=== PATIENT | male | born 1930 | race Caucasian/White ===

== ENCOUNTER 2018-07-02 16:45 | Inpatient (IN) | payer MEDICARE, OTHER ==
[2018-07-02] VITALS (10 sets, daily range): BP systolic 74–164; BP diastolic 48–83
[~2018-07-02] VITALS: Ht 172.7 cm; Wt 94.4 kg
[2018-07-02] MEDS ORDERED: PROPOFOL 50 ML IV ONE (16:53)
[2018-07-02] MEDS ORDERED: MIDAZOLAM HCL/PF 2 MG/2 ML VIAL. ONE (16:59)
[2018-07-02] MEDS ORDERED: fentaNYL PF VIAL 100 MCG/2 ML VIAL ONE (16:59)
[2018-07-02] MEDS ORDERED: LIDOCAINE 1% Multi-Dose 20 ML VIAL. ONE (17:00)
[2018-07-02] MEDS ORDERED: IODIXANOL 320 MG/ML 100 ML VIAL. ONE ×2 (17:00→17:02)
[2018-07-02 17:03] LABS: BASO # 0.1 x10^3/uL (0.0-0.2); BASO % 1 % (0-3); EOS # 0.2 x10^3/uL (0.0-0.7); EOS % 1 % (0-3); HEMATOCRIT 40.8 % (39.0-53.0); HEMOGLOBIN 13.7 g/dL (13.0-17.5); LYMPH % 20 % (24-48); MEAN CORPUSCULAR HEMOGLOBIN 33 pg (25-35); MEAN CORPUSCULAR HGB CONC 34 g/dL (31-37); MEAN CORPUSCULAR VOLUME 97 fL (79-100); MONO # 0.8 x10^3/uL (0.0-1.1); MONO % 4 % (0-9); NEUT # 15.2 x10^3uL (1.8-7.7); NEUT % 75 % (31-73); PLATELET COUNT 240 x10^3/uL (140-400); RED BLOOD COUNT 4.21 x10^6/uL (4.30-5.70); RED CELL DISTRIBUTION WIDTH 13.3 % (11.5-14.5); WHITE BLOOD COUNT 20.2 x10^3/uL (4.0-11.0)
[2018-07-02 17:11] LABS: CALCIUM 8.8 mg/dL (8.5-10.1); CREATININE 1.5 mg/dL (0.7-1.3); GFR 44.3
[2018-07-02 17:12] LABS: PROTHROMBIN TIME PATIENT 13.4 SEC (11.7-14.0)
[2018-07-02 17:15] LABS: BASE EXCESS ABG -4 mmol/L (-3-3); HCO3 ABG 23 mmol/L (21-28); PCO2 ABG 49 mmHg (35-46); PO2 ABG 64 mmHg (65-108); SAT O2 ABG 89 % (92-99)
[2018-07-02 17:18] LABS: ALBUMIN 3.8 g/dL (3.4-5.0); ALBUMIN/GLOBULIN RATIO 1.2 (1.0-1.7); MAGNESIUM 1.8 mg/dL (1.8-2.4); TOTAL BILIRUBIN 0.8 mg/dL (0.2-1.0); TOTAL PROTEIN 7.1 g/dL (6.4-8.2)
[2018-07-02] MEDS ORDERED: ETOMIDATE 20 MG/10 ML VIAL. IV ONE (17:24)
[2018-07-02] MEDS ORDERED: ROCURONIUM 50 MG/5 ML VIAL. ONE (17:25)
[2018-07-02 17:27] LABS: % BANDS 13 % (0-9); % EOS 4 % (0-5); % LYMPHS 21 % (24-48); % MONOS 3 % (0-10); % SEGS 59 % (35-66); PLT ESTIMATE ADEQUATE (ADEQUATE)
[2018-07-02] MEDS ORDERED: IV NORMAL SALINE 1000ML BAG 1,000 ML IV ONE (17:30)
[2018-07-02] MEDS ORDERED: PIPERACILLIN/TAZOBACTAM 3.375 GM in IV NORMAL SALINE 50ML 50 ML IV ONE (17:30)
--- NOTE | 2018-07-02 17:32 | RAD ---
PORTABLE CHEST 1V History: Yes with of surface, LINE PLACEMENTS. Endotracheal tube is identified with its tip at the marnie. Recommend retraction about 4 cm. There is diffuse infiltrates/edema in both lungs, much more prominent in the right lower lobe where there is confluent airspace opacification. Endotracheal tube has its tip at the marnie, and could be withdrawn a few centimeters. Endogastric tube is seen extending into the left upper quadrant. No evidence of pneumothorax. No large effusion. IMPRESSION: 1. Endotracheal tube tip at the marnie, recommend retract a couple of centimeters. 2. Extensive infiltrates/edema in both lungs, greatest at the right lower lobe where there is airspace consolidation. 3. Findings discussed with Dr. Langston in the emergency room. Electronically signed by: Maximo Miller MD (07/02/2018 5:29 PM) [facility]
[2018-07-02 17:35] LABS: BILIRUBIN,URINE NEGATIVE (NEG); CLARITY,URINE CLEAR; COLOR,URINE YELLOW; NITRITE,URINE NEGATIVE (NEG); PH,URINE 7.5; PROTEIN,URINE NEGATIVE (NEG-TRACE)
[2018-07-02] MEDS ORDERED: ASPIRIN RECTAL 300 MG SUPP. PR STA (17:37)
[2018-07-02 17:44] LABS: BACTERIA,URINE MANY /HPF (0-FEW); RBC,URINE OCC /HPF (0-2); SQUAMOUS EPITHELIAL CELL,UR OCC /LPF
[2018-07-02] MEDS ORDERED: ACETAMINOPHEN 650 MG SUPP.RECT. PR ONE (17:45)
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
[2018-07-02] MEDS ORDERED: ANTI-COAG MONITOR BY PHARMACY. MC PRN (18:00)
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
--- NOTE | 2018-07-02 18:51 | NUR ---
Patient arrived to unit intubated and sedated. Placed on vent and monitor. Report give to FRANCESCA Healy.
[2018-07-02 18:53] LABS: FIO2 ABG 100
[2018-07-02] MEDS ORDERED: PROPOFOL 100 ML IV ONE (18:59)
[2018-07-02] MEDS: HEPARIN for IV BOLUS 10,000 UNIT/10 ML VIAL. IV PRN (19:08)
[2018-07-02] MEDS: HEPARIN 25,000UTS/500ML PREMIX 500 ML IV PRN (19:13)
[2018-07-02] MEDS: IV NORMAL SALINE 1000ML BAG 1,000 ML IV SCH ×2 (19:14→23:13)
[2018-07-02] MEDS ORDERED: PIP/TAZO PER PHARMACY MC PRN (20:00)
[2018-07-02] MEDS ORDERED: VANCOMYCIN PER PHARMACY MC PRN (20:00)
[2018-07-02] MEDS ORDERED: VANCOMYCIN 2 GM in IV NORMAL SALINE 500ML BAG 500 ML IV ONE (20:30)
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
[2018-07-02] MEDS: PROPOFOL 100 ML IV PRN (21:18)
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
[2018-07-02] MEDS ORDERED: NOREPINEPHRIN 8MG/250ML PREMIX 250 ML IV PRN (23:00)
[2018-07-02] MEDS ORDERED: MIDAZOLAM 100mg/100ml NS BAG 100 ML IV PRN (23:00)
[2018-07-02] MEDS ORDERED: fentaNYL PF VIAL 100 MCG/2 ML VIAL IV PRN ×2 (23:00)
--- NOTE | 2018-07-02 23:09 | EKG ---
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
[2018-07-03] VITALS (23 sets, daily range): BP systolic 88–136; BP diastolic 43–69
[2018-07-03] MEDS: IV NORMAL SALINE 1000ML BAG 1,000 ML IV SCH ×3 (00:25→07:40)
[2018-07-03] MEDS: PIPERACILLIN/TAZOBACTAM 3.375 GM in IV NORMAL SALINE 50ML 50 ML IV SCH ×4 (00:25→18:08)
[2018-07-03 05:00] LABS: BASO % 0 % (0-3); EOS % 0 % (0-3); HEMATOCRIT 41.8 % (39.0-53.0); HEMOGLOBIN 13.7 g/dL (13.0-17.5); LYMPH # 0.6 x10^3/uL (1.0-4.8); LYMPH % 5 % (24-48); MEAN CORPUSCULAR HEMOGLOBIN 32 pg (25-35); MEAN CORPUSCULAR HGB CONC 33 g/dL (31-37); MEAN CORPUSCULAR VOLUME 98 fL (79-100); MONO # 0.6 x10^3/uL (0.0-1.1); MONO % 5 % (0-9); NEUT # 10.8 x10^3uL (1.8-7.7); NEUT % 90 % (31-73); PLATELET COUNT 193 x10^3/uL (140-400); RED BLOOD COUNT 4.25 x10^6/uL (4.30-5.70); RED CELL DISTRIBUTION WIDTH 13.5 % (11.5-14.5)
[2018-07-03 05:23] LABS: CALCIUM 7.8 mg/dL (8.5-10.1); CREATININE 1.7 mg/dL (0.7-1.3); GFR 38.3; MAGNESIUM 1.3 mg/dL (1.8-2.4); POTASSIUM 4.5 mmol/L (3.5-5.1)
[2018-07-03 05:24] LABS: CHOLESTEROL/HDL RATIO 2.1
[2018-07-03] MEDS: PROPOFOL 100 ML IV PRN (07:39)
--- NOTE | 2018-07-03 08:02 | RAD ---
AP view of the chest. Comparison: Chest radiograph dated 07/02/2018. Indication: respiratory distress Findings: Endotracheal tube with tip 3.3 cm above the marnie. Enteric tube with tip coursing off the inferior field of view. Unchanged neurostimulator leads. Normal lung volume. Unchanged right mid to lower lung zone predominant airspace opacities and consolidation. Unchanged pulmonary vasculature. No pleural effusion or pneumothorax. The cardiomediastinal silhouette and great vessels are unchanged. CABG. Prior median sternotomy. No acute osseous abnormality. IMPRESSION: 1. Unchanged right mid to lower lung zone predominant airspace opacities and consolidation. 2. Endotracheal tube with tip now 3.3 cm above the marnie. Enteric tube with tip coursing off the inferior field of view. Electronically signed by: Deyvi Day MD (07/03/2018 7:59 AM) [facility]
--- NOTE | 2018-07-03 08:27 | EKG ---
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
--- NOTE | 2018-07-03 08:37 | EKG ---
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
--- NOTE | 2018-07-03 08:37 | EKG ---
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
[2018-07-03] MEDS ORDERED: MAGNESIUM SULFATE 4GM 100 ML IV ONE (09:00)
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
[2018-07-03 09:25] LABS: BASE EXCESS ABG -3 mmol/L (-3-3); HCO3 ABG 21 mmol/L (21-28); PCO2 ABG 33 mmHg (35-46); PO2 ABG 81 mmHg (65-108); SAT O2 ABG 96 % (92-99)
[2018-07-03 09:39] LABS: FIO2 ABG 30
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
[2018-07-03 12:46] LABS: BASE EXCESS ABG -2 mmol/L (-3-3); HCO3 ABG 21 mmol/L (21-28); PCO2 ABG 30 mmHg (35-46); PO2 ABG 80 mmHg (65-108); SAT O2 ABG 96 % (92-99)
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
[2018-07-03] MEDS ORDERED: FUROSEMIDE 20 MG/2 ML VIAL. IVP ONE (14:00)
[2018-07-03 15:08] LABS: FIO2 ABG 30
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
[2018-07-03] MEDS: IPRATRPIUM/ALBUTEROL 0.5/2.5MG 3 ML NEBU. NEB SCH ×3 (16:00→19:57)
[2018-07-03] MEDS ORDERED: ACETAMINOPHEN 325 MG TABLET. PO PRN (19:45)
[2018-07-03] MEDS ORDERED: VANCOMYCIN 1.5 GM in IV NORMAL SALINE 500ML BAG 500 ML IV SCH (20:30)
[2018-07-03] MEDS: HEPARIN 25,000UTS/500ML PREMIX 500 ML IV PRN (21:30)
[2018-07-04] VITALS (18 sets, daily range): BP systolic 102–160; BP diastolic 53–82
[2018-07-04] MEDS: PIPERACILLIN/TAZOBACTAM 3.375 GM in IV NORMAL SALINE 50ML 50 ML IV SCH ×3 (05:49→18:23)
[2018-07-04 06:45] LABS: CREATININE ISTAT 1.3 mg/dL (0.5-1.4); HEMOGLOBIN ISTAT 15.3 g/dL (14-18); ION CA ISTAT 1.1 mmol/L (1.13-1.32); POTASSIUM ISTAT 3.9 mmol/L (3.5-5.0)
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
[2018-07-04 08:31] LABS: CALCIUM 6.4 mg/dL (8.5-10.1); CREATININE 1.1 mg/dL (0.7-1.3); GFR 63.3; POTASSIUM 3.3 mmol/L (3.5-5.1); TOTAL BILIRUBIN 0.6 mg/dL (0.2-1.0); TOTAL PROTEIN 4.1 g/dL (6.4-8.2)
[2018-07-04] MEDS: IPRATRPIUM/ALBUTEROL 0.5/2.5MG 3 ML NEBU. NEB SCH ×4 (08:53→20:12)
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
[2018-07-04] MEDS ORDERED: POTASSIUM CHLORIDE 20 MEQ TABLET.ER. PO ONE (11:15)
--- NOTE | 2018-07-04 11:50 | NUR ---
Patient ambulated around the unit with Physical Therapy.
--- NOTE | 2018-07-04 12:39 | PDOC ---
PULMONARY PROGRESS NOTES Subjective extubated 07/03 doing well Vitals Vital Signs Date Time Temp Pulse Resp B/P (MAP) Pulse Ox O2 Delivery O2 Flow Rate FiO2 07/04/18 11:00 86 20 135/67 (89) 100 Room Air 07/04/18 07:00 98.3 98.3 07/04/18 06:00 4.0 ROS: No Chest Pain, No Increase Cough General: Alert, No acute distress Lungs: Clear Cardiovascular: S1 Abdomen: Soft, Non-tender Neuro Exam: Alert Extremities: Other (1+edema) Labs Laboratory Tests Test 07/02/18 16:48 07/02/18 16:52 07/02/18 16:53 07/02/18 16:55 White Blood Count 20.2 x10^3/uL (4.0-11.0) Red Blood Count 4.21 x10^6/uL (4.30-5.70) Hemoglobin 13.7 g/dL (13.0-17.5) Hematocrit 40.8 % (39.0-53.0) Mean Corpuscular Volume 97 fL (79-100) Mean Corpuscular Hemoglobin 33 pg (25-35) Mean Corpuscular Hemoglobin Concent 34 g/dL (31-37) Red Cell Distribution Width 13.3 % (11.5-14.5) Platelet Count 240 x10^3/uL (140-400) Neutrophils (%) (Auto) 75 % (31-73) Lymphocytes (%) (Auto) 20 % (24-48) Monocytes (%) (Auto) 4 % (0-9) Eosinophils (%) (Auto) 1 % (0-3) Basophils (%) (Auto) 1 % (0-3) Neutrophils # (Auto) 15.2 x10^3uL (1.8-7.7) Lymphocytes # (Auto) 4.0 x10^3/uL (1.0-4.8) Monocytes # (Auto) 0.8 x10^3/uL (0.0-1.1) Eosinophils # (Auto) 0.2 x10^3/uL (0.0-0.7) Basophils # (Auto) 0.1 x10^3/uL (0.0-0.2) Segmented Neutrophils % 59 % (35-66) Band Neutrophils % 13 % (0-9) Lymphocytes % 21 % (24-48) Monocytes % 3 % (0-10) Eosinophils % 4 % (0-5) Platelet Estimate Adequate (ADEQUATE) Prothrombin Time 13.4 SEC (11.7-14.0) Prothromb Time International Ratio 1.1 (0.8-1.1) Sodium Level 121 mmol/L (136-145) Potassium Level 4.0 mmol/L (3.5-5.1) Chloride Level 86 mmol/L (98-107) Carbon Dioxide Level 22 mmol/L (21-32) Anion Gap 13 (6-14) 17 mmol/L (6-14) Blood Urea Nitrogen 9 mg/dL (8-26) Creatinine 1.5 mg/dL (0.7-1.3) Estimated GFR (Cockcroft-Gault) 44.3 BUN/Creatinine Ratio 6 (6-20) Glucose Level 214 mg/dL (70-99) 201 mg/dL (70-99) Calcium Level 8.8 mg/dL (8.5-10.1) Magnesium Level 1.8 mg/dL (1.8-2.4) Total Bilirubin 0.8 mg/dL (0.2-1.0) Aspartate Amino Transf (AST/SGOT) 30 U/L (15-37) Alanine Aminotransferase (ALT/SGPT) 25 U/L (16-63) Alkaline Phosphatase 92 U/L (46-116) Creatine Kinase 201 U/L (39-308) Troponin I Quantitative 1.432 ng/mL (0.000-0.055) KE-Var-W-Type Natriuretic Peptide 251 pg/mL (0-449) Total Protein 7.1 g/dL (6.4-8.2) Albumin 3.8 g/dL (3.4-5.0) Albumin/Globulin Ratio 1.2 (1.0-1.7) Bedside Troponin I 0.71 ng/ml (<0.08) O2 Saturation 89 % (92-99) Arterial Blood pH 7.29 (7.35-7.45) Arterial Blood pCO2 at Patient Temp 49 mmHg (35-46) Arterial Blood pO2 at Patient Temp 64 mmHg (65-108) Arterial Blood HCO3 23 mmol/L (21-28) Arterial Blood Base Excess -4 mmol/L (-3-3) FiO2 100 Bedside Hemoglobin 15.3 g/dL (14-18) Bedside Hematocrit 45 % (37-52) Bedside Sodium 121 mmol/L (135-145) Bedside Potassium 3.9 mmol/L (3.5-5.0) Bedside Chloride 86 mmol/L (98-110) Bedside Total CO2 23 mmol/L (23-32) Bedside Blood Urea Nitrogen 9 mg/dL (8-26) Bedside Creatinine 1.3 mg/dL (0.5-1.4) Bedside Ionized Calcium (Alfred) 1.10 mmol/L (1.13-1.32) Test 07/02/18 17:12 07/02/18 17:15 07/02/18 21:35 07/03/18 02:30 Urine Collection Type U cath Urine Color Yellow Urine Clarity Clear Urine pH 7.5 Urine Specific [place] 1.010 Urine Protein Negative mg/dL (NEG-TRACE) Urine Glucose (UA) Negative mg/dL (NEG) Urine Ketones (Stick) Negative mg/dL (NEG) Urine Blood Trace (NEG) Urine Nitrite Negative (NEG) Urine Bilirubin Negative (NEG) Urine Urobilinogen Dipstick 1.0 mg/dL (0.2 mg/dL) Urine Leukocyte Esterase Trace (NEG) Urine RBC Occ /HPF (0-2) Urine WBC 5-10 /HPF (0-4) Urine Squamous Epithelial Cells Occ /LPF Urine Transitional Epithelial Cells Occ /LPF Urine Bacteria Many /HPF (0-FEW) Lactic Acid Level 3.8 mmol/L (0.4-2.0) 4.7 mmol/L (0.4-2.0) Troponin I Quantitative 12.669 ng/mL (0.000-0.055) Heparin Anti-Xa Act, Unfractionated 0.31 IU/mL (0.30-0.70) Test 07/03/18 04:30 07/03/18 08:00 07/03/18 08:40 07/03/18 12:40 White Blood Count 12.0 x10^3/uL (4.0-11.0) Red Blood Count 4.25 x10^6/uL (4.30-5.70) Hemoglobin 13.7 g/dL (13.0-17.5) Hematocrit 41.8 % (39.0-53.0) Mean Corpuscular Volume 98 fL (79-100) Mean Corpuscular Hemoglobin 32 pg (25-35) Mean Corpuscular Hemoglobin Concent 33 g/dL (31-37) Red Cell Distribution Width 13.5 % (11.5-14.5) Platelet Count 193 x10^3/uL (140-400) Neutrophils (%) (Auto) 90 % (31-73) Lymphocytes (%) (Auto) 5 % (24-48) Monocytes (%) (Auto) 5 % (0-9) Eosinophils (%) (Auto) 0 % (0-3) Basophils (%) (Auto) 0 % (0-3) Neutrophils # (Auto) 10.8 x10^3uL (1.8-7.7) Lymphocytes # (Auto) 0.6 x10^3/uL (1.0-4.8) Monocytes # (Auto) 0.6 x10^3/uL (0.0-1.1) Eosinophils # (Auto) 0.0 x10^3/uL (0.0-0.7) Basophils # (Auto) 0.0 x10^3/uL (0.0-0.2) Sodium Level 125 mmol/L (136-145) Potassium Level 4.5 mmol/L (3.5-5.1) Chloride Level 91 mmol/L (98-107) Carbon Dioxide Level 21 mmol/L (21-32) Anion Gap 13 (6-14) Blood Urea Nitrogen 16 mg/dL (8-26) Creatinine 1.7 mg/dL (0.7-1.3) Estimated GFR (Cockcroft-Gault) 38.3 Glucose Level 158 mg/dL (70-99) Calcium Level 7.8 mg/dL (8.5-10.1) Magnesium Level 1.3 mg/dL (1.8-2.4) Triglycerides Level 34 mg/dL (0-150) Cholesterol Level 99 mg/dL (0-200) LDL Cholesterol, Calculated 44 mg/dL (0-100) VLDL Cholesterol, Calculated 7 mg/dL (0-40) Non-HDL Cholesterol Calculated 51 mg/dL (0-129) HDL Cholesterol 48 mg/dL (40-60) Cholesterol/HDL Ratio 2.1 Procalcitonin 29.09 ng/mL (0.00-0.10) O2 Saturation 96 % (92-99) 96 % (92-99) Arterial Blood pH 7.42 (7.35-7.45) 7.51 (7.35-7.45) Arterial Blood pCO2 at Patient Temp 33 mmHg (35-46) 30 mmHg (35-46) Arterial Blood pO2 at Patient Temp 81 mmHg (65-108) 80 mmHg (65-108) Arterial Blood HCO3 21 mmol/L (21-28) 21 mmol/L (21-28) Arterial Blood Base Excess -3 mmol/L (-3-3) -2 mmol/L (-3-3) FiO2 30 30 Heparin Anti-Xa Act, Unfractionated 0.32 IU/mL (0.30-0.70) Lactic Acid Level 3.3 mmol/L (0.4-2.0) Test 07/04/18 05:00 Heparin Anti-Xa Act, Unfractionated > 1.10 IU/mL (0.30-0.70) Sodium Level 132 mmol/L (136-145) Potassium Level 3.3 mmol/L (3.5-5.1) Chloride Level 98 mmol/L (98-107) Carbon Dioxide Level 21 mmol/L (21-32) Anion Gap 13 (6-14) Blood Urea Nitrogen 14 mg/dL (8-26) Creatinine 1.1 mg/dL (0.7-1.3) Estimated GFR (Cockcroft-Gault) 63.3 BUN/Creatinine Ratio 13 (6-20) Glucose Level 212 mg/dL (70-99) Calcium Level 6.4 mg/dL (8.5-10.1) Total Bilirubin 0.6 mg/dL (0.2-1.0) Aspartate Amino Transf (AST/SGOT) 35 U/L (15-37) Alanine Aminotransferase (ALT/SGPT) 19 U/L (16-63) Alkaline Phosphatase 55 U/L (46-116) Total Protein 4.1 g/dL (6.4-8.2) Albumin 2.0 g/dL (3.4-5.0) Albumin/Globulin Ratio 1.0 (1.0-1.7) Laboratory Tests Test 07/03/18 12:40 07/04/18 05:00 O2 Saturation 96 % (92-99) Arterial Blood pH 7.51 (7.35-7.45) Arterial Blood pCO2 at Patient Temp 30 mmHg (35-46) Arterial Blood pO2 at Patient Temp 80 mmHg (65-108) Arterial Blood HCO3 21 mmol/L (21-28) Arterial Blood Base Excess -2 mmol/L (-3-3) FiO2 30 Heparin Anti-Xa Act, Unfractionated > 1.10 IU/mL (0.30-0.70) Sodium Level 132 mmol/L (136-145) Potassium Level 3.3 mmol/L (3.5-5.1) Chloride Level 98 mmol/L (98-107) Carbon Dioxide Level 21 mmol/L (21-32) Anion Gap 13 (6-14) Blood Urea Nitrogen 14 mg/dL (8-26) Creatinine 1.1 mg/dL (0.7-1.3) Estimated GFR (Cockcroft-Gault) 63.3 BUN/Creatinine Ratio 13 (6-20) Glucose Level 212 mg/dL (70-99) Calcium Level 6.4 mg/dL (8.5-10.1) Total Bilirubin 0.6 mg/dL (0.2-1.0) Aspartate Amino Transf (AST/SGOT) 35 U/L (15-37) Alanine Aminotransferase (ALT/SGPT) 19 U/L (16-63) Alkaline Phosphatase 55 U/L (46-116) Total Protein 4.1 g/dL (6.4-8.2) Albumin 2.0 g/dL (3.4-5.0) Albumin/Globulin Ratio 1.0 (1.0-1.7) Impression . 1. Acute hypoxic and hypercapnic respiratory failure secondary to syncopal episode and likely right lower lobe aspiration pneumonia./ shock 2. Shock related to combination of hypovolemic and septic shock. Pt has right lower lobe pneumonia. 3. Minimal history of tobacco use. 4. 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 5. Mild renal insufficiency. 6. Lactic acidosis secondary to sepsis. Procalcitonin level was markedly high and now improving. 7. RLL pneumonia, likely aspiration. Plan . 1. Doing well since extubation 07/03. on canula 2. Normal EF on echo 3. off dopamine. He is status post 3 liters of fluid resuscitation. 4. Minimize narcotics. 5. Broad spectrum antibiotics per Infectious Disease. 6. Follow white cell count. 7. DVT prophylaxis and stress ulcer prophylaxis. 8. will need to use home CPAP/ may have dosed off in hot tub due to BRIAN FLORENTINO QUINTANA MD Jul 04, 2018 12:39
--- NOTE | 2018-07-04 13:43 | PDOC ---
PROGRESS NOTES Assessment Assessment IMPRESSION: Anoxia/hypoxia event. Syncopal spell likely while in hot tub. BRIAN, not compliant with CPAP. CAD. CHF. HTN HLD. Obesity. RECOMMENDATIONS/PLAN: Treat medical disease. EEG. Discussed with his about home safety watch. Past Medical History Cardiovascular: CAD, CHF, HTN, Hyperlipidemia Pulmonary: Other (sleep apnea) Renal/: Prostate Ca. Past Surgical History Prostate surgery. Family History Cancer, DM Social History Lives with his at home. , retired, no tobacco, one or 2 alcoholic beverages a day at least. Allergies Coded Allergies: hydromorphone (Verified Allergy, Intermediate, 07/02/18) piroxicam (Verified Allergy, Intermediate, 07/02/18) MEDICATIONS: Refer to MAR REVIEW OF SYSTEMS: Constitutional: Obesity. Head: No traumatic brain or head injury. Skin: No edema, or rash. Ear: No infection. Eyes: No vision loss, or diplopia. Nose: No bleeding or purulent discharges. Hearing: Hearing decrease.. Neck: No injury. Cardiac: CAD, HTN, HLD Pulmonary: BRIAN. GI: No GI Ulcer, GI bleeding Urinary/genital: Prostate cancer s/p surgical treatment. Endocrine: Obesity. Skeletomuscular: No muscular atrophy, deformity. Neurological: see HP. Psychiatric: Denies drug use/abuse. Otherwise, not [id number] review of systems. PHYSICAL EXAMINATION: General appearance in subacute distress. HEENT: Normocephalic and nontraumatic. Eyes, nose, ears, and throat are unremarkable. Hearing decrease. Neck is supple. No lymphadenopathy. No Crepitus. Cardiovascular: S1, S2, regular rate and rhythm. Pulmonary: Clear to auscultation bilaterally. Abdomen: Bowel sounds are positive. Abdomen is soft, nontender, and nondistended. Extremities: No rash, lesions, or edema. No restriction of range of motion NEUROLOGICAL EXAMINATION: Alert. Oriented to time, place and person. PERRL. EOMI. CN: no focal findings. Muscle tone: within normal. Muscle strength: 5 DTR: 2 Plantar reflex: Flexor response bilaterally Gait: not examined in chair. Sensory exam: no abnormal findings. No cerebellar signs elicited. F-T-N test fine. Objective Objective Vital Signs Date Time Temp Pulse Resp B/P (MAP) Pulse Ox O2 Delivery O2 Flow Rate FiO2 07/04/18 13:12 99 Room Air 07/04/18 13:00 98 20 160/76 (104) 07/04/18 12:00 97.7 97.7 07/04/18 06:00 4.0 Intake and Output 07/04/18 06:59 Intake Total 2673.4 ml Output Total 4355 ml Balance -1681.6 ml Intake Oral 50 ml IV Total 2623.4 ml Output Urine Total 4355 ml Vitals Signs Vitals VS - Last 72 Hours, by Label Date Time Temp Pulse Resp B/P (MAP) Pulse Ox O2 Delivery O2 Flow Rate FiO2 07/04/18 13:12 99 Room Air 07/04/18 13:00 98 20 160/76 (104) 98 Room Air 07/04/18 12:00 97.7 90 16 131/73 (92) 99 Room Air 97.7 07/04/18 12:00 Room Air 07/04/18 11:00 86 20 135/67 (89) 100 Room Air 07/04/18 10:00 90 14 130/76 (94) 99 Room Air 07/04/18 09:00 90 14 124/66 (85) 98 Room Air 07/04/18 08:53 99 Room Air 07/04/18 08:00 88 18 129/82 (98) 99 Room Air 07/04/18 08:00 Room Air 07/04/18 07:00 98.3 90 18 128/68 (88) 93 Room Air 98.3 07/04/18 06:00 96 19 141/60 (87) 96 Nasal Cannula 4.0 07/04/18 05:00 89 15 133/61 (85) 96 Nasal Cannula 4.0 07/04/18 04:00 98.4 93 22 140/69 (92) 98 Nasal Cannula 4.0 98.4 07/04/18 04:00 Nasal Cannula 2.0 07/04/18 03:00 96 22 125/57 (79) 96 Nasal Cannula 4.0 07/04/18 02:00 94 20 122/56 (78) 96 Nasal Cannula 4.0 07/04/18 01:00 95 20 114/53 (73) 98 Nasal Cannula 4.0 07/04/18 00:00 98.4 93 21 102/58 (73) 98 Nasal Cannula 98.4 07/03/18 23:00 93 20 100/52 (68) 97 Nasal Cannula 07/03/18 23:00 Nasal Cannula 2.0 07/03/18 22:00 99 20 96/66 (76) 99 Nasal Cannula 07/03/18 21:00 104 21 115/58 (77) 100 Nasal Cannula 07/03/18 20:00 Nasal Cannula 2.0 07/03/18 20:00 99.0 103 20 95/60 (72) 100 Nasal Cannula 99.0 07/03/18 20:00 100 Nasal Cannula 2.0 07/03/18 19:00 94 21 108/48 (68) 100 Nasal Cannula 07/03/18 17:00 97 21 119/55 (76) 95 Nasal Cannula 07/03/18 16:19 100 Nasal Cannula 2.0 07/03/18 16:07 Nasal Cannula 2.0 07/03/18 16:07 92 21 134/57 (82) 95 Ventilator 07/03/18 15:46 97 07/03/18 15:00 91 21 136/69 (91) 95 Ventilator 07/03/18 14:04 97 07/03/18 14:00 88 21 135/69 (91) 95 Ventilator 07/03/18 13:00 75 21 121/65 (83) 95 Ventilator 07/03/18 12:05 97 Ventilator 07/03/18 12:00 75 21 109/52 (71) 95 Ventilator 07/03/18 12:00 Mechanical Ventilator 07/03/18 11:00 84 21 99/56 (70) 95 Ventilator 07/03/18 10:24 100 Ventilator 07/03/18 10:00 80 21 99/54 (69) 95 Ventilator 07/03/18 09:00 75 21 113/49 (70) 95 Ventilator 07/03/18 08:00 Mechanical Ventilator 07/03/18 08:00 78 21 111/49 (69) 95 Ventilator 07/03/18 07:38 95 Ventilator 07/03/18 07:00 72 21 94/49 (64) 95 Ventilator Laboratory Laboratory Laboratory Tests Test 07/04/18 05:00 07/04/18 12:25 Heparin Anti-Xa Act, Unfractionated > 1.10 IU/mL (0.30-0.70) 0.15 IU/mL (0.30-0.70) Sodium Level 132 mmol/L (136-145) Potassium Level 3.3 mmol/L (3.5-5.1) Chloride Level 98 mmol/L (98-107) Carbon Dioxide Level 21 mmol/L (21-32) Anion Gap 13 (6-14) Blood Urea Nitrogen 14 mg/dL (8-26) Creatinine 1.1 mg/dL (0.7-1.3) Estimated GFR (Cockcroft-Gault) 63.3 BUN/Creatinine Ratio 13 (6-20) Glucose Level 212 mg/dL (70-99) Calcium Level 6.4 mg/dL (8.5-10.1) Total Bilirubin 0.6 mg/dL (0.2-1.0) Aspartate Amino Transf (AST/SGOT) 35 U/L (15-37) Alanine Aminotransferase (ALT/SGPT) 19 U/L (16-63) Alkaline Phosphatase 55 U/L (46-116) Total Protein 4.1 g/dL (6.4-8.2) Albumin 2.0 g/dL (3.4-5.0) Albumin/Globulin Ratio 1.0 (1.0-1.7) Microbiology 07/02/18 Blood Culture - Preliminary, Resulted NO GROWTH AFTER 1 DAY Medication Medications Current Medications Acetaminophen (Tylenol) 650 mg PRN Q6HRS PRN PO PAIN; Start 07/03/18 at 19:45 Albuterol/ Ipratropium (Duoneb) 3 ml RTQID NEB Last administered on 07/04/18at 13 :12; Start 07/03/18 at 14:00 Furosemide (Lasix) 20 mg 1X ONCE IVP Last administered on 07/03/18at 14:03; Start 07/03/18 at 14:00; Stop 07/03/18 at 14:01; Status DC Potassium Chloride (Klor-Con) 20 meq [id number] PO ; Start 07/05/18 at 08:00 Potassium Chloride (Klor-Con) 40 meq 1X ONCE PO Last administered on 07/04/18at 12:19; Start 07/04/18 at 11:15; Stop 07/04/18 at 11:16; Status DC Sodium Chloride 1,000 ml @ 60 mls/hr [id number] IV ; Start 07/05/18 at 07:30 Vancomycin HCl (Vancomycin Trough Level) 1 each 1X ONCE MC ; Start 07/04/18 at 20:00; Stop 07/04/18 at 20:01; Status Cancel Vancomycin HCl 1.5 gm/Sodium Chloride 500 ml @ 250 mls/hr Q24H IV ; Start at 20:30; Stop 07/03/18 at 20:30; Status DC Comment Review of Relevant I have reviewed the following items raven (where applicable) has been applied. KATHERINE DICKSON MD Jul 04, 2018 13:43
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
--- NOTE | 2018-07-04 14:40 | NUR ---
SS following for discharge planning. SS reviewed pt chart. Pt is from home with spouse and is currently on room air. PT recommended intermediate unit. SS met with pt and spouse in room and discussed intermediate unit and discharge planning. Pt and spouse agreeable to intermediate unit and requested that referral be sent to [facility], ; fax [phone]. SS phoned and faxed referral to [facility]. SS will await acceptance decision and will proceed accordingly.
[2018-07-04] MEDS: HEPARIN for IV BOLUS 10,000 UNIT/10 ML VIAL. IV PRN ×2 (15:04→23:02)
[2018-07-04] MEDS: ONDANSETRON PF 4 MG/2 ML VIAL. IV PRN ×2 (16:26→22:53)
[2018-07-04] MEDS ORDERED: SULF1TAB23 PO (18:18)
[2018-07-04] MEDS ORDERED: TRIA1CAP3 PO (18:18)
[2018-07-04] MEDS ORDERED: VIT1TABL34 PO (18:18)
[2018-07-04] MEDS ORDERED: LEVO137T3 PO (18:18)
[2018-07-04] MEDS ORDERED: IMIP50TA3 PO (18:18)
[2018-07-04] MEDS ORDERED: SIMV40TA3 PO (18:18)
[2018-07-04] MEDS ORDERED: ASPI-630 PO (18:18)
[2018-07-04] MEDS ORDERED: ESCITALOPRAM OXA5 M1 PO (18:18)
[2018-07-04] MEDS ORDERED: GABA300C18 PO (18:18)
[2018-07-04] MEDS ORDERED: IMIP10TA2 PO (18:18)
[2018-07-04] MEDS ORDERED: OMEP20CA10 PO (18:18)
[2018-07-04] MEDS ORDERED: HYDR12.575 PO (18:18)
[2018-07-04] MEDS ORDERED: LOSA-73 PO ×2 (18:18)
[2018-07-04] MEDS: HEPARIN 25,000UTS/500ML PREMIX 500 ML IV PRN (23:04)
[2018-07-05] VITALS (16 sets, daily range): BP systolic 135–170; BP diastolic 68–90
[2018-07-05] MEDS: PIPERACILLIN/TAZOBACTAM 3.375 GM in IV NORMAL SALINE 50ML 50 ML IV SCH ×5 (00:12→23:31)
[2018-07-05 05:30] LABS: BASO % 0 % (0-3); EOS % 0 % (0-3); HEMATOCRIT 31.2 % (39.0-53.0); HEMOGLOBIN 10.8 g/dL (13.0-17.5); LYMPH # 0.6 x10^3/uL (1.0-4.8); LYMPH % 6 % (24-48); MEAN CORPUSCULAR HEMOGLOBIN 34 pg (25-35); MEAN CORPUSCULAR HGB CONC 35 g/dL (31-37); MEAN CORPUSCULAR VOLUME 97 fL (79-100); MONO # 0.4 x10^3/uL (0.0-1.1); MONO % 4 % (0-9); NEUT % 89 % (31-73); PLATELET COUNT 148 x10^3/uL (140-400); RED BLOOD COUNT 3.23 x10^6/uL (4.30-5.70); RED CELL DISTRIBUTION WIDTH 13.5 % (11.5-14.5); WHITE BLOOD COUNT 10.1 x10^3/uL (4.0-11.0)
[2018-07-05] MEDS: ONDANSETRON PF 4 MG/2 ML VIAL. IV PRN ×2 (05:30→12:37)
[2018-07-05 05:49] LABS: CALCIUM 8.7 mg/dL (8.5-10.1); GFR 70.7; MAGNESIUM 1.7 mg/dL (1.8-2.4); POTASSIUM 3.9 mmol/L (3.5-5.1)
[2018-07-05] MEDS ORDERED: IV NORMAL SALINE 1000ML BAG 1,000 ML IV SCH (07:30)
[2018-07-05] MEDS ORDERED: IODIXANOL 320 MG/ML 100 ML VIAL. ONE ×2 (07:31→09:12)
[2018-07-05] MEDS ORDERED: LIDOCAINE 1% Multi-Dose 20 ML VIAL. ONE (07:31)
[2018-07-05] MEDS ORDERED: fentaNYL PF VIAL 100 MCG/2 ML VIAL ONE (07:44)
[2018-07-05] MEDS ORDERED: MIDAZOLAM HCL/PF 2 MG/2 ML VIAL. ONE (07:45)
[2018-07-05] MEDS: HEPARIN for IV BOLUS 10,000 UNIT/10 ML VIAL. IV PRN (07:52)
[2018-07-05] MEDS ORDERED: IODIXANOL 320 MG/ML 100 ML VIAL. IART ONE (08:15)
[2018-07-05] MEDS ORDERED: MIDAZOLAM HCL/PF 2 MG/2 ML VIAL. IV ONE (08:15)
[2018-07-05] MEDS ORDERED: LIDOCAINE 1% Multi-Dose 20 ML VIAL. INJ ONE (08:15)
[2018-07-05] MEDS ORDERED: fentaNYL PF VIAL 100 MCG/2 ML VIAL IV ONE (08:15)
--- NOTE | 2018-07-05 08:21 | NUR ---
SS following up with discharge planning. Pt accepted at [facility]. SS will await discharge orders for [facility] unit and will proceed accordingly. Pt's RN notified.
[2018-07-05] MEDS ORDERED: CONTRAST GIVEN. MC PRN (08:30)
--- NOTE | 2018-07-05 08:33 | PDOC ---
PULMONARY PROGRESS NOTES Subjective extubated 07/03 doing well Vitals Vital Signs Date Time Temp Pulse Resp B/P (MAP) Pulse Ox O2 Delivery O2 Flow Rate FiO2 07/05/18 02:38 97.9 88 18 168/80 (109) 98 Nasal Cannula 2.0 97.9 ROS: No Chest Pain, No Increase Cough General: Alert, No acute distress Lungs: Clear Cardiovascular: S1 Abdomen: Soft, Non-tender Neuro Exam: Alert Extremities: Other (1+edema) Labs Laboratory Tests Test 07/03/18 08:40 07/03/18 12:40 07/04/18 05:00 07/04/18 09:15 Heparin Anti-Xa Act, Unfractionated 0.32 IU/mL (0.30-0.70) > 1.10 IU/mL (0.30-0.70) Lactic Acid Level 3.3 mmol/L (0.4-2.0) O2 Saturation 96 % (92-99) Arterial Blood pH 7.51 (7.35-7.45) Arterial Blood pCO2 at Patient Temp 30 mmHg (35-46) Arterial Blood pO2 at Patient Temp 80 mmHg (65-108) Arterial Blood HCO3 21 mmol/L (21-28) Arterial Blood Base Excess -2 mmol/L (-3-3) FiO2 30 Sodium Level 132 mmol/L (136-145) Potassium Level 3.3 mmol/L (3.5-5.1) Chloride Level 98 mmol/L (98-107) Carbon Dioxide Level 21 mmol/L (21-32) Anion Gap 13 (6-14) Blood Urea Nitrogen 14 mg/dL (8-26) Creatinine 1.1 mg/dL (0.7-1.3) Estimated GFR (Cockcroft-Gault) 63.3 BUN/Creatinine Ratio 13 (6-20) Glucose Level 212 mg/dL (70-99) Calcium Level 6.4 mg/dL (8.5-10.1) Total Bilirubin 0.6 mg/dL (0.2-1.0) Aspartate Amino Transf (AST/SGOT) 35 U/L (15-37) Alanine Aminotransferase (ALT/SGPT) 19 U/L (16-63) Alkaline Phosphatase 55 U/L (46-116) Total Protein 4.1 g/dL (6.4-8.2) Albumin 2.0 g/dL (3.4-5.0) Albumin/Globulin Ratio 1.0 (1.0-1.7) Nasal Screen MRSA (PCR) Negative (Negative) Test 07/04/18 12:25 07/04/18 21:05 07/05/18 05:15 Heparin Anti-Xa Act, Unfractionated 0.15 IU/mL (0.30-0.70) < 0.10 IU/mL (0.30-0.70) 0.19 IU/mL (0.30-0.70) White Blood Count 10.1 x10^3/uL (4.0-11.0) Red Blood Count 3.23 x10^6/uL (4.30-5.70) Hemoglobin 10.8 g/dL (13.0-17.5) Hematocrit 31.2 % (39.0-53.0) Mean Corpuscular Volume 97 fL (79-100) Mean Corpuscular Hemoglobin 34 pg (25-35) Mean Corpuscular Hemoglobin Concent 35 g/dL (31-37) Red Cell Distribution Width 13.5 % (11.5-14.5) Platelet Count 148 x10^3/uL (140-400) Neutrophils (%) (Auto) 89 % (31-73) Lymphocytes (%) (Auto) 6 % (24-48) Monocytes (%) (Auto) 4 % (0-9) Eosinophils (%) (Auto) 0 % (0-3) Basophils (%) (Auto) 0 % (0-3) Neutrophils # (Auto) 9.0 x10^3uL (1.8-7.7) Lymphocytes # (Auto) 0.6 x10^3/uL (1.0-4.8) Monocytes # (Auto) 0.4 x10^3/uL (0.0-1.1) Eosinophils # (Auto) 0.0 x10^3/uL (0.0-0.7) Basophils # (Auto) 0.0 x10^3/uL (0.0-0.2) Sodium Level 129 mmol/L (136-145) Potassium Level 3.9 mmol/L (3.5-5.1) Chloride Level 95 mmol/L (98-107) Carbon Dioxide Level 24 mmol/L (21-32) Anion Gap 10 (6-14) Blood Urea Nitrogen 17 mg/dL (8-26) Creatinine 1.0 mg/dL (0.7-1.3) Estimated GFR (Cockcroft-Gault) 70.7 Glucose Level 128 mg/dL (70-99) Calcium Level 8.7 mg/dL (8.5-10.1) Magnesium Level 1.7 mg/dL (1.8-2.4) Laboratory Tests Test 07/04/18 09:15 07/04/18 12:25 07/04/18 21:05 07/05/18 05:15 Nasal Screen MRSA (PCR) Negative (Negative) Heparin Anti-Xa Act, Unfractionated 0.15 IU/mL (0.30-0.70) < 0.10 IU/mL (0.30-0.70) 0.19 IU/mL (0.30-0.70) White Blood Count 10.1 x10^3/uL (4.0-11.0) Red Blood Count 3.23 x10^6/uL (4.30-5.70) Hemoglobin 10.8 g/dL (13.0-17.5) Hematocrit 31.2 % (39.0-53.0) Mean Corpuscular Volume 97 fL (79-100) Mean Corpuscular Hemoglobin 34 pg (25-35) Mean Corpuscular Hemoglobin Concent 35 g/dL (31-37) Red Cell Distribution Width 13.5 % (11.5-14.5) Platelet Count 148 x10^3/uL (140-400) Neutrophils (%) (Auto) 89 % (31-73) Lymphocytes (%) (Auto) 6 % (24-48) Monocytes (%) (Auto) 4 % (0-9) Eosinophils (%) (Auto) 0 % (0-3) Basophils (%) (Auto) 0 % (0-3) Neutrophils # (Auto) 9.0 x10^3uL (1.8-7.7) Lymphocytes # (Auto) 0.6 x10^3/uL (1.0-4.8) Monocytes # (Auto) 0.4 x10^3/uL (0.0-1.1) Eosinophils # (Auto) 0.0 x10^3/uL (0.0-0.7) Basophils # (Auto) 0.0 x10^3/uL (0.0-0.2) Sodium Level 129 mmol/L (136-145) Potassium Level 3.9 mmol/L (3.5-5.1) Chloride Level 95 mmol/L (98-107) Carbon Dioxide Level 24 mmol/L (21-32) Anion Gap 10 (6-14) Blood Urea Nitrogen 17 mg/dL (8-26) Creatinine 1.0 mg/dL (0.7-1.3) Estimated GFR (Cockcroft-Gault) 70.7 Glucose Level 128 mg/dL (70-99) Calcium Level 8.7 mg/dL (8.5-10.1) Magnesium Level 1.7 mg/dL (1.8-2.4) Medications Active Scripts Medications Dose Route/Sig Max Daily Dose Days Date Category Imipramine Hcl 10 Mg Tablet 10 Mg PO DAILY 07/04/18 Reported Simvastatin 40 Mg Tablet 40 Mg PO HS 07/04/18 Reported Triamterene-Hctz 37.5-25 Mg Cp (Triamterene/Hydrochlorothiazid) 1 Each Capsule 1 Cap PO DAILY 07/04/18 Reported Omeprazole 20 Mg Capsule.dr 20 Mg PO BID 07/04/18 Reported Preservision Areds Tablet (Vit A/Vit C/Vit E/Zinc/Copper) 1 Each Tablet 1 Each PO DAILY 07/04/18 Reported Levothyroxine Sodium 137 Mcg Tablet 137 Mcg PO DAILY06 07/04/18 Reported Imipramine Hcl 50 Mg Tablet 50 Mg PO DAILY 07/04/18 Reported Aspirin 81 Mg Tab.chew 81 Mg PO DAILY 07/04/18 Reported Bactrim 400-80 Mg Tablet (Sulfamethoxazole/Trimethoprim) 1 Each Tablet 2 Each PO BID 07/04/18 Reported Escitalopram Oxalate 5 Mg Tablet 10 Mg PO DAILY 07/04/18 Reported Gabapentin 300 Mg Capsule 300 Mg PO BID PRN 07/04/18 Reported Losartan Potassium 50 Mg Tablet 25 Mg PO HS 07/04/18 Reported Losartan Potassium 50 Mg Tablet 50 Mg PO DAILY 07/04/18 Reported Impression . 1. Acute hypoxic and hypercapnic respiratory failure secondary to syncopal episode and likely right lower lobe aspiration pneumonia./ shock 2. Shock related to combination of hypovolemic and septic shock. Pt has right lower lobe pneumonia. 3. Minimal history of tobacco use. 4. 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 5. Mild renal insufficiency. 6. Lactic acidosis secondary to sepsis. Procalcitonin level was markedly high and now improving. 7. RLL pneumonia, likely aspiration. Plan . 1. Doing well since extubation 07/03. on canula 2. Normal EF on echo 3. off dopamine. He is status post 3 liters of fluid resuscitation. 4. Minimize narcotics. 5. Broad spectrum antibiotics per Infectious Disease. 6. Follow white cell count. 7. DVT prophylaxis and stress ulcer prophylaxis. 8. will need to use home CPAP/ may have dosed off in hot tub due to BRIAN CORBIN AGUIRRE MD Jul 05, 2018 08:33
[2018-07-05] MEDS ORDERED: MAGNESIUM SULFATE 1GM 100 ML IV ONE (09:00)
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
[2018-07-05] MEDS ORDERED: cloNIDine HCL 0.1 MG TABLET PO PRN (09:15)
[2018-07-05] MEDS: IPRATRPIUM/ALBUTEROL 0.5/2.5MG 3 ML NEBU. NEB SCH ×4 (09:36→19:26)
--- NOTE | 2018-07-05 09:58 | PDOC ---
MODERATE SEDATION ASSESSMENT RISKS/ALTERNATIVES Risks/Alternatives Risks and alternatives of this type of sedation and procedure discussed with: RISK/ALTERNATIVES: Patient H & P ON CHART H & P H & P on chart and reviewed for co-morbid conditions and appropriate labs. H&P ON CHART: Yes STATUS PREG STATUS ASSESSED: N/A MEDS/ALLERGIES REVIEWED Meds/Allergies Reviewed Medications and Allergies including time and route of recently administered narcotics and sedatives. MEDS/ALLERGIES REVIEWED: Yes ASA RATING ASA RATING: III AIRWAY ASSESSMENT Airway Assessment Airway patency, oral function limitations, presence of caps, crowns, dentures, partials, and ability to extend neck assessed. AIRWAY ASSESSMENT: Yes MALLAMPATI SCORE MALLAMPATI SCORE: II PRE-SEDATION ASSESSMENT PRE-SEDATION ASSESSMENT: Yes SIDDHARTH THURMAN MD Jul 05, 2018 09:58
[2018-07-05] MEDS ORDERED: NITROGLYCERIN SUBLINGUAL 0.4 MG BOTTLE OF 25. SL PRN (10:15)
--- NOTE | 2018-07-05 10:17 | NUR ---
Patient went down for cardiac cath at 0825 & arrived back to room at 1017. Patient A&O but a little drowsy. R groin dressing CDI. Pulses palpable. No complaints of pain. Frequent VS set up. Will continue to monitor.
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
[2018-07-05] MEDS ORDERED: IV 1/2 NORMAL SALINE 1,000 ML IV SCH (10:30)
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
[2018-07-05] MEDS: POTASSIUM CHLORIDE 20 MEQ TABLET.ER. PO SCH (11:19)
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
--- NOTE | 2018-07-05 17:30 | NUR ---
Removed patient's trevizo catheter per Dr. Ortega's order. Patient finished with bedrest after cardiac cath. Patient tolerated procedure well. Will continue to monitor output & assist patient with urinal.
[2018-07-05] MEDS ORDERED: CALCIUM CARBONATE 500 MG TAB.CHEW PO PRN (18:00)
[2018-07-05] MEDS ORDERED: LIDO:MAALOX 1:1 20 ML SINGLE DOSE. SWSW ONE (18:00)
--- NOTE | 2018-07-05 18:01 | NUR ---
Patient complaining of his stomach feeling "sick" this evening. Patient states it does not hurt, but he feel nauseous. Zofran administered, however patient still does not want to try to eat. Also noticed patient to hiccup at times. Dr. Huerta notified, orders received. Will continue to monitor.
[2018-07-05] MEDS: LACTOBACILLUS RHAMNOSUS GG 1 CAPSULE. PO SCH (21:09)
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
--- NOTE | 2018-07-06 00:25 | NUR ---
pt verbalized he caths himself 3 times a day at home, dr perez notified, order received to straight cath as pt does at home. pt has note voided since joseline was d/cd this evening, will cont to monitor pt for changes, call light in reach. pmrn
[2018-07-06] MEDS: ONDANSETRON PF 4 MG/2 ML VIAL. IV PRN ×2 (00:39→09:02)
--- NOTE | 2018-07-06 01:03 | NUR ---
pt straight as per order, 450 Addendum: 07/06/18 at 0106 by MARINA PADRON RN pt straight cath as per order, 450cc obtained via bladder, pt tolerated well, will cont to monitor for changes. call light in place. pmrn
[2018-07-06 03:21] VITALS: BP 161/81
[2018-07-06 04:14] LABS: BASO % 0 % (0-3); EOS # 0.1 x10^3/uL (0.0-0.7); EOS % 1 % (0-3); HEMATOCRIT 29.7 % (39.0-53.0); HEMOGLOBIN 10.2 g/dL (13.0-17.5); LYMPH # 0.8 x10^3/uL (1.0-4.8); LYMPH % 7 % (24-48); MEAN CORPUSCULAR HEMOGLOBIN 33 pg (25-35); MEAN CORPUSCULAR HGB CONC 34 g/dL (31-37); MEAN CORPUSCULAR VOLUME 96 fL (79-100); MONO # 0.7 x10^3/uL (0.0-1.1); MONO % 6 % (0-9); NEUT % 86 % (31-73); PLATELET COUNT 163 x10^3/uL (140-400); RED BLOOD COUNT 3.09 x10^6/uL (4.30-5.70); RED CELL DISTRIBUTION WIDTH 13.3 % (11.5-14.5); WHITE BLOOD COUNT 10.5 x10^3/uL (4.0-11.0)
[2018-07-06] MEDS: PIPERACILLIN/TAZOBACTAM 3.375 GM in IV NORMAL SALINE 50ML 50 ML IV SCH (06:14)
[2018-07-06] MEDS: PANTOPRAZOLE 40 MG TABLET.DR. PO SCH (06:36)
[2018-07-06 07:00] VITALS: BP 160/85
[2018-07-06] MEDS: IPRATRPIUM/ALBUTEROL 0.5/2.5MG 3 ML NEBU. NEB SCH ×4 (07:35→18:27)
[2018-07-06 08:07] LABS: CALCIUM 8.7 mg/dL (8.5-10.1); CREATININE 0.9 mg/dL (0.7-1.3); GFR 79.8; POTASSIUM 3.8 mmol/L (3.5-5.1)
[2018-07-06] MEDS: POTASSIUM CHLORIDE 20 MEQ TABLET.ER. PO SCH (08:20)
[2018-07-06] MEDS: LACTOBACILLUS RHAMNOSUS GG 1 CAPSULE. PO SCH ×2 (08:21→21:32)
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
[2018-07-06] MEDS ORDERED: MAGNESIUM SULFATE 1GM 100 ML IV ONE (08:30)
[2018-07-06] MEDS: CEFDINIR 300 MG CAPSULE PO SCH ×2 (09:15→21:32)
[2018-07-06] MEDS ORDERED: amLODIPine BESYLATE 5 MG TABLET PO ONE (09:45)
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
[2018-07-06] MEDS ORDERED: CLOPIDOGREL BISULFATE 75 MG TABLET PO ONE (10:30)
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
[2018-07-06 11:00] VITALS: BP 144/71
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
[2018-07-06] MEDS: ASPIRIN ENTERIC COATED 81 MG TABLET.DR. PO SCH (11:48)
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
[2018-07-06 15:00] VITALS: BP 148/70
[2018-07-06 19:20] VITALS: BP 147/72
[2018-07-06] MEDS ORDERED: ATORVASTATIN CALCIUM 20 MG TABLET PO SCH (21:00)
[2018-07-06] MEDS ORDERED: LOSARTAN POTASSIUM 25 MG TABLET. PO SCH (21:00)
--- NOTE | 2018-07-06 22:06 | NUR ---
pt straight cath as per order, 650cc clear yellow urine, pt tolerated well, call light in reach, will cont to monitor pt. pmrn
[2018-07-06 23:15] VITALS: BP 160/78
[2018-07-07 03:12] VITALS: BP 161/85
[2018-07-07 03:56] LABS: BASO % 0 % (0-3); EOS # 0.3 x10^3/uL (0.0-0.7); EOS % 3 % (0-3); HEMATOCRIT 31.5 % (39.0-53.0); HEMOGLOBIN 10.6 g/dL (13.0-17.5); LYMPH # 0.8 x10^3/uL (1.0-4.8); LYMPH % 9 % (24-48); MEAN CORPUSCULAR HEMOGLOBIN 33 pg (25-35); MEAN CORPUSCULAR HGB CONC 34 g/dL (31-37); MEAN CORPUSCULAR VOLUME 98 fL (79-100); MONO # 0.9 x10^3/uL (0.0-1.1); MONO % 10 % (0-9); NEUT % 78 % (31-73); PLATELET COUNT 197 x10^3/uL (140-400); RED BLOOD COUNT 3.22 x10^6/uL (4.30-5.70); RED CELL DISTRIBUTION WIDTH 13.5 % (11.5-14.5)
[2018-07-07 06:39] VITALS: BP 156/78
[2018-07-07] MEDS: IPRATRPIUM/ALBUTEROL 0.5/2.5MG 3 ML NEBU. NEB SCH (07:38)
[2018-07-07] MEDS ORDERED: CLOPIDOGREL BISULFATE 75 MG TABLET PO SCH (08:00)
[2018-07-07 08:30] LABS: CALCIUM 8.5 mg/dL (8.5-10.1); CREATININE 0.9 mg/dL (0.7-1.3); GFR 79.8; POTASSIUM 3.5 mmol/L (3.5-5.1)
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
[2018-07-07] MEDS: CEFDINIR 300 MG CAPSULE PO SCH (08:56)
[2018-07-07] MEDS: ASPIRIN ENTERIC COATED 81 MG TABLET.DR. PO SCH (08:56)
[2018-07-07] MEDS: PANTOPRAZOLE 40 MG TABLET.DR. PO SCH (08:57)
[2018-07-07] MEDS: POTASSIUM CHLORIDE 20 MEQ TABLET.ER. PO SCH (08:57)
[2018-07-07] MEDS: LACTOBACILLUS RHAMNOSUS GG 1 CAPSULE. PO SCH (08:58)
[2018-07-07] MEDS ORDERED: LOSARTAN POTASSIUM 50 MG TABLET. PO SCH (09:00)
[2018-07-07] MEDS ORDERED: CARVEDILOL 3.125 MG TABLET. PO SCH (09:00)
[2018-07-07] MEDS ORDERED: CLON0.1T12 PO (09:23)
[2018-07-07] MEDS ORDERED: IPRA3AMP29 NEB (09:23)
[2018-07-07] MEDS ORDERED: ATOR20TA58 PO (09:23)
[2018-07-07] MEDS ORDERED: CARV3.1210 PO (09:23)
[2018-07-07] MEDS ORDERED: CLOP75TA PO (09:23)
[2018-07-07] MEDS ORDERED: NITR0.4T SL (09:23)
[2018-07-07] MEDS ORDERED: CEFD300C PO (09:23)
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
[2018-07-07 11:04] VITALS: BP 144/87
--- NOTE | 2018-07-07 11:20 | PDOC ---
PULMONARY PROGRESS NOTES Subjective extubated 07/03, sob better, no cough, has back pain doing well Vitals Vital Signs Date Time Temp Pulse Resp B/P (MAP) Pulse Ox O2 Delivery O2 Flow Rate FiO2 07/07/18 11:04 98.1 70 144/87 (106) 95 Nasal Cannula 2.0 98.1 07/07/18 06:39 18 ROS: No Chest Pain, No Increase Cough General: Alert, No acute distress Lungs: Crackles Cardiovascular: S1, S2 Abdomen: Soft, Non-tender Neuro Exam: Alert Extremities: Other (1+edema) Skin: Warm Labs Laboratory Tests Test 07/06/18 03:40 07/07/18 03:00 White Blood Count 10.5 x10^3/uL (4.0-11.0) 9.0 x10^3/uL (4.0-11.0) Red Blood Count 3.09 x10^6/uL (4.30-5.70) 3.22 x10^6/uL (4.30-5.70) Hemoglobin 10.2 g/dL (13.0-17.5) 10.6 g/dL (13.0-17.5) Hematocrit 29.7 % (39.0-53.0) 31.5 % (39.0-53.0) Mean Corpuscular Volume 96 fL (79-100) 98 fL (79-100) Mean Corpuscular Hemoglobin 33 pg (25-35) 33 pg (25-35) Mean Corpuscular Hemoglobin Concent 34 g/dL (31-37) 34 g/dL (31-37) Red Cell Distribution Width 13.3 % (11.5-14.5) 13.5 % (11.5-14.5) Platelet Count 163 x10^3/uL (140-400) 197 x10^3/uL (140-400) Neutrophils (%) (Auto) 86 % (31-73) 78 % (31-73) Lymphocytes (%) (Auto) 7 % (24-48) 9 % (24-48) Monocytes (%) (Auto) 6 % (0-9) 10 % (0-9) Eosinophils (%) (Auto) 1 % (0-3) 3 % (0-3) Basophils (%) (Auto) 0 % (0-3) 0 % (0-3) Neutrophils # (Auto) 9.0 x10^3uL (1.8-7.7) 7.0 x10^3uL (1.8-7.7) Lymphocytes # (Auto) 0.8 x10^3/uL (1.0-4.8) 0.8 x10^3/uL (1.0-4.8) Monocytes # (Auto) 0.7 x10^3/uL (0.0-1.1) 0.9 x10^3/uL (0.0-1.1) Eosinophils # (Auto) 0.1 x10^3/uL (0.0-0.7) 0.3 x10^3/uL (0.0-0.7) Basophils # (Auto) 0.0 x10^3/uL (0.0-0.2) 0.0 x10^3/uL (0.0-0.2) Sodium Level 127 mmol/L (136-145) 131 mmol/L (136-145) Potassium Level 3.8 mmol/L (3.5-5.1) 3.5 mmol/L (3.5-5.1) Chloride Level 95 mmol/L (98-107) 95 mmol/L (98-107) Carbon Dioxide Level 23 mmol/L (21-32) 24 mmol/L (21-32) Anion Gap 9 (6-14) 12 (6-14) Blood Urea Nitrogen 18 mg/dL (8-26) 15 mg/dL (8-26) Creatinine 0.9 mg/dL (0.7-1.3) 0.9 mg/dL (0.7-1.3) Estimated GFR (Cockcroft-Gault) 79.8 79.8 Glucose Level 95 mg/dL (70-99) 86 mg/dL (70-99) Calcium Level 8.7 mg/dL (8.5-10.1) 8.5 mg/dL (8.5-10.1) Magnesium Level 1.7 mg/dL (1.8-2.4) Procalcitonin 5.95 ng/mL (0.00-0.10) Thyroid Stimulating Hormone (TSH) 1.798 uIU/mL (0.358-3.74) Laboratory Tests Test 07/07/18 03:00 White Blood Count 9.0 x10^3/uL (4.0-11.0) Red Blood Count 3.22 x10^6/uL (4.30-5.70) Hemoglobin 10.6 g/dL (13.0-17.5) Hematocrit 31.5 % (39.0-53.0) Mean Corpuscular Volume 98 fL (79-100) Mean Corpuscular Hemoglobin 33 pg (25-35) Mean Corpuscular Hemoglobin Concent 34 g/dL (31-37) Red Cell Distribution Width 13.5 % (11.5-14.5) Platelet Count 197 x10^3/uL (140-400) Neutrophils (%) (Auto) 78 % (31-73) Lymphocytes (%) (Auto) 9 % (24-48) Monocytes (%) (Auto) 10 % (0-9) Eosinophils (%) (Auto) 3 % (0-3) Basophils (%) (Auto) 0 % (0-3) Neutrophils # (Auto) 7.0 x10^3uL (1.8-7.7) Lymphocytes # (Auto) 0.8 x10^3/uL (1.0-4.8) Monocytes # (Auto) 0.9 x10^3/uL (0.0-1.1) Eosinophils # (Auto) 0.3 x10^3/uL (0.0-0.7) Basophils # (Auto) 0.0 x10^3/uL (0.0-0.2) Sodium Level 131 mmol/L (136-145) Potassium Level 3.5 mmol/L (3.5-5.1) Chloride Level 95 mmol/L (98-107) Carbon Dioxide Level 24 mmol/L (21-32) Anion Gap 12 (6-14) Blood Urea Nitrogen 15 mg/dL (8-26) Creatinine 0.9 mg/dL (0.7-1.3) Estimated GFR (Cockcroft-Gault) 79.8 Glucose Level 86 mg/dL (70-99) Calcium Level 8.5 mg/dL (8.5-10.1) Medications Active Scripts Medications Dose Route/Sig Max Daily Dose Days Date Category Imipramine Hcl 10 Mg Tablet 10 Mg PO DAILY 07/04/18 Reported Simvastatin 40 Mg Tablet 40 Mg PO HS 4/8/19 Reported Triamterene-Hctz 37.5-25 Mg Cp (Triamterene/Hydrochlorothiazid) 1 Each Capsule 1 Cap PO DAILY 07/04/18 Reported Omeprazole 20 Mg Capsule.dr 20 Mg PO BID 07/04/18 Reported Preservision Areds Tablet (Vit A/Vit C/Vit E/Zinc/Copper) 1 Each Tablet 1 Each PO DAILY 07/04/18 Reported Levothyroxine Sodium 137 Mcg Tablet 137 Mcg PO DAILY06 07/04/18 Reported Imipramine Hcl 50 Mg Tablet 50 Mg PO DAILY 07/04/18 Reported Aspirin 81 Mg Tab.chew 81 Mg PO DAILY 07/04/18 Reported Bactrim 400-80 Mg Tablet (Sulfamethoxazole/Trimethoprim) 1 Each Tablet 2 Each PO BID 07/04/18 Reported Escitalopram Oxalate 5 Mg Tablet 10 Mg PO DAILY 07/04/18 Reported Gabapentin 300 Mg Capsule 300 Mg PO BID PRN 07/04/18 Reported Losartan Potassium 50 Mg Tablet 25 Mg PO HS 07/04/18 Reported Losartan Potassium 50 Mg Tablet 50 Mg PO DAILY 07/04/18 Reported Impression . 1. Acute hypoxic and hypercapnic respiratory failure secondary to syncopal episode and likely right lower lobe aspiration pneumonia./ shock, extubated, doing well 2. Shock related to combination of hypovolemic and septic shock. Pt has right lower lobe pneumonia. resolved 3. Minimal history of tobacco use. 4. 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 5. Mild renal insufficiency. 6. Lactic acidosis secondary to sepsis. Procalcitonin level was markedly high and now improving. 7. RLL pneumonia, likely aspiration. Plan . 1. Doing well since extubation 07/03. titrate fio2 to keep sat 92% 2. Normal EF on echo 3. stable BP 4. avoid oversedation 5. Broad spectrum antibiotics per Infectious Disease. 6. Follow white cell count. 7. DVT prophylaxis and stress ulcer prophylaxis. 8. will need to use home CPAP/ may have dosed off in hot tub due to BRIAN discussed w rn, pt SARAH HAM MD Jul 07, 2018 11:20
--- NOTE | 2018-07-07 13:30 | NUR ---
CALLED REPORT TO [facility] TO UVALDO MA.
[2018-07-07 14:20] LABS: UR POTASSIUM 27.2 mmol/L (Not Estab.)
--- NOTE | 2018-07-07 14:28 | NUR ---
1410 TODAY IV AND TELE DISCONTINUED, PT DRESSED AND TRANSFERRED TO [facility]. ALL BELONGINGS SENT WITH PATIENT. Addendum: 07/07/18 at 1459 by Luc Daugherty RN CONTACT DR. FRASER TO CLARIFY DOSE OF IMIPRAMINE BECAUSE PT IS ON 2 DOSES, 50MG PO DAILY AND 10 MG PO DAILY. SHAGGY MA CALLED FROM [facility] AND WAS DEMANDING CLARIFICATION OF THIS MED. DR. FRASER INSTRUCT THAT THIS IS THE DOSES THAT THE PT IS ON AND SHOULD BE CONTINUED. THIS WAS PASSED ON TO SHAGGY MA BY OUR HEADLINER INSTALLER YUE. YUE ALSO INSTRUCTED SHAGGY MA THAT IF SHE HAS FURTHER CONCERN OF THIS MEDICATION TO HOLD THE MEDICATION FOR TODAY IT IS 1430 IN THE AFTERNOON AND TO CLARIFY WITH THE ACCEPTING PHYSICIAN IN THE AM.
--- NOTE | 2018-07-07 15:23 | NUR ---
CONTACT [facility] AND INFORM UVALDO MA THAT I STRAIGHT CATHED PT AND 1500ML URINE WAS COLLECTED.
--- NOTE | 2018-07-07 18:28 | PDOC ---
PROGRESS NOTES Assessment Assessment Hypoxia event. Syncopal spell and LOC while in hot tub. NSTEMI. Elevated Troponin, 12.669. Lactic acidosis. BRIAN, not compliant with CPAP. CAD. CHF. DM. Hyperglycemia. HTN HLD. UTI. Obesity. RECOMMENDATIONS/PLAN: Cardiac cath on 07/05/18. Treat medical and cardiac disease. Discussed with his at bedside on 07/06/18. FU with PCP. FU with Cardiology. FU with Neurology as needed. Past Medical History Cardiovascular: CAD, CHF, HTN, Hyperlipidemia Pulmonary: Other (sleep apnea) Renal/: Prostate Ca. Past Surgical History Prostate surgery. Family History Cancer, DM Social History Lives with his at home. , retired, no tobacco, one or 2 alcoholic beverages a day at least. Allergies Coded Allergies: hydromorphone (Verified Allergy, Intermediate, 07/02/18) piroxicam (Verified Allergy, Intermediate, 07/02/18) MEDICATIONS: Refer to MAR REVIEW OF SYSTEMS: Constitutional: Obesity. Head: No traumatic brain or head injury. Skin: No edema, or rash. Ear: No infection. Eyes: No vision loss, or diplopia. Nose: No bleeding or purulent discharges. Hearing: Hearing decrease.. Neck: No injury. Cardiac: CAD, HTN, HLD Pulmonary: BRIAN. GI: No GI Ulcer, GI bleeding Urinary/genital: Prostate cancer s/p surgical treatment. Endocrine: Obesity. Skeletomuscular: No muscular atrophy, deformity. Neurological: see HP. Psychiatric: Denies drug use/abuse. Otherwise, not [id number] review of systems. PHYSICAL EXAMINATION: General appearance in no acute distress. HEENT: Normocephalic and nontraumatic. Eyes, nose, ears, and throat are unremarkable. Hearing decrease. Neck is supple. No lymphadenopathy. No Crepitus. Cardiovascular: S1, S2, regular rate and rhythm. Pulmonary: Clear to auscultation bilaterally. Abdomen: Bowel sounds are positive. Abdomen is soft, nontender, and nondistended. Extremities: No rash, lesions, or edema. No restriction of range of motion NEUROLOGICAL EXAMINATION: Awake. Oriented to time, place and person. PERRL. EOMI. CN: no focal findings. Muscle tone: within normal. Muscle strength: 5- DTR: 2- Plantar reflex: Flexor response bilaterally Gait: not examined in bed. Sensory exam: no abnormal findings. No cerebellar signs elicited. F-T-N test fine. Objective Objective Vital Signs Date Time Temp Pulse Resp B/P (MAP) Pulse Ox O2 Delivery O2 Flow Rate FiO2 07/07/18 11:04 98.1 70 144/87 (106) 95 Nasal Cannula 2.0 98.1 07/07/18 06:39 18 Intake and Output 07/07/18 06:59 Intake Total 365 ml Output Total 2300 ml Balance -1935 ml Intake Oral 365 ml Output Urine Total 2300 ml Vitals Signs Vitals VS - Last 72 Hours, by Label Date Time Temp Pulse Resp B/P (MAP) Pulse Ox O2 Delivery O2 Flow Rate FiO2 07/07/18 11:04 98.1 70 144/87 (106) 95 Nasal Cannula 2.0 98.1 07/07/18 10:54 95 Nasal Cannula 2.0 07/07/18 08:58 84 145/76 07/07/18 08:00 Nasal Cannula 2.0 07/07/18 07:38 96 Nasal Cannula 2.0 07/07/18 06:39 98.1 85 18 156/78 (104) 95 Nasal Cannula 3.0 98.1 07/07/18 03:12 97.9 84 18 161/85 (110) 95 Nasal Cannula 2.0 97.9 07/06/18 23:15 98.3 89 18 160/78 (105) 97 Nasal Cannula 2.0 98.3 07/06/18 19:50 Nasal Cannula 2.0 07/06/18 19:40 Nasal Cannula 2.0 07/06/18 19:20 98.2 82 19 147/72 (97) 96 Nasal Cannula 2.0 98.2 07/06/18 18:28 96 Nasal Cannula 2.0 07/06/18 15:36 96 Nasal Cannula 2.0 07/06/18 15:00 98.0 79 20 148/70 (96) 94 Nasal Cannula 2.0 98.0 07/06/18 11:52 98 Nasal Cannula 2.0 07/06/18 11:49 83 144/71 07/06/18 11:00 98.2 83 20 144/71 (95) 96 Nasal Cannula 2.0 98.2 07/06/18 08:00 Nasal Cannula 2.0 07/06/18 07:36 97 Room Air 07/06/18 07:00 98.3 81 20 160/85 (110) 96 Nasal Cannula 2.0 98.3 Laboratory Laboratory Laboratory Tests Test 07/07/18 03:00 White Blood Count 9.0 x10^3/uL (4.0-11.0) Red Blood Count 3.22 x10^6/uL (4.30-5.70) Hemoglobin 10.6 g/dL (13.0-17.5) Hematocrit 31.5 % (39.0-53.0) Mean Corpuscular Volume 98 fL (79-100) Mean Corpuscular Hemoglobin 33 pg (25-35) Mean Corpuscular Hemoglobin Concent 34 g/dL (31-37) Red Cell Distribution Width 13.5 % (11.5-14.5) Platelet Count 197 x10^3/uL (140-400) Neutrophils (%) (Auto) 78 % (31-73) Lymphocytes (%) (Auto) 9 % (24-48) Monocytes (%) (Auto) 10 % (0-9) Eosinophils (%) (Auto) 3 % (0-3) Basophils (%) (Auto) 0 % (0-3) Neutrophils # (Auto) 7.0 x10^3uL (1.8-7.7) Lymphocytes # (Auto) 0.8 x10^3/uL (1.0-4.8) Monocytes # (Auto) 0.9 x10^3/uL (0.0-1.1) Eosinophils # (Auto) 0.3 x10^3/uL (0.0-0.7) Basophils # (Auto) 0.0 x10^3/uL (0.0-0.2) Sodium Level 131 mmol/L (136-145) Potassium Level 3.5 mmol/L (3.5-5.1) Chloride Level 95 mmol/L (98-107) Carbon Dioxide Level 24 mmol/L (21-32) Anion Gap 12 (6-14) Blood Urea Nitrogen 15 mg/dL (8-26) Creatinine 0.9 mg/dL (0.7-1.3) Estimated GFR (Cockcroft-Gault) 79.8 Glucose Level 86 mg/dL (70-99) Calcium Level 8.5 mg/dL (8.5-10.1) Microbiology 07/02/18 Blood Culture - Final, Complete NO GROWTH AFTER 5 DAYS 07/03/18 - Final, Complete 07/03/18 - Final, Complete 07/03/18 - Final, Complete 07/03/18 Gram Stain Evaluation - Final, Complete 07/03/18 Sputum Culture - Final, Complete 07/03/18 Sputum Result 1 - Final, Complete 07/02/18 Urine Culture - Final, Complete 07/02/18 Urine Culture Result 1 (ZANE) - Final, Complete 07/02/18 Antimicrobic Susceptibility - Final, Complete Medication Medications Current Medications Atorvastatin Calcium (Lipitor) 20 mg QHS PO Last administered on 07/06/18at 21: 32; Start 07/06/18 at 21:00; Stop 07/07/18 at 14:37; Status DC Carvedilol (Coreg) 3.125 mg BIDWMEALS PO Last administered on 07/07/18at 08:58; Start 07/07/18 at 09:00; Stop 07/07/18 at 14:37; Status DC Clopidogrel Bisulfate (Plavix) 75 mg DAILYWBKFT PO Last administered on at 08:56; Start 07/07/18 at 08:00; Stop 07/07/18 at 14:37; Status DC Losartan Potassium (Cozaar) 25 mg HS PO ; Start 07/06/18 at 21:00; Stop at 21:00; Status DC Losartan Potassium (Cozaar) 50 mg DAILY PO ; Start 07/07/18 at 09:00; Stop 07/07 at 09:00; Status DC Comment Review of Relevant I have reviewed the following items raven (where applicable) has been applied. KATHERINE DICKSON MD Jul 07, 2018 18:28
--- NOTE | 2018-07-12 15:42 | EKG ---
[facility] [address] [place] [address] Test Date: 2018-07-03 Test Time: 04:46:54 Pat Name: KASSIE QUICK Department: Room: 256 1 Gender: M Generation Technologist: : 1930 Requested By: HONORIO OLMEDO Order Number: [id number] Reading MD: José Miguel Parker MD Measurements Intervals [place] Rate: 78 P: -7 OK: 224 QRS: -7 QRSD: 122 T: 53 QT: 412 QTc: 474 Interpretive Statements SINUS RHYTHM PROLONGED OK INTERVAL LEFTWARD AXIS ABNORMAL ECG Electronically Signed On 07-13-2018 9:04:38 CDT by José Miguel Parker MD
== END 2018-07-07 14:05 | DRG 871 ==
LOC: ER 16:45 → 1 WEST ICU 17:00 → 2 SOUTH 07-04 15:34
PROVIDERS: ADMIT Internal Medicine; ATTEND Internal Medicine
PROC: 5A1935Z Respiratory Ventilation, Less than 24 Consecutive Hours (ICD-10-PCS; principal; 2018-07-02)
PROC: 0BH17EZ Insertion of Endotracheal Airway into Trachea, Via Natural or Artificial Opening (ICD-10-PCS; 2018-07-02)
PROC: 4A023N7 Measurement of Cardiac Sampling and Pressure, Left Heart, Percutaneous Approach (ICD-10-PCS; 2018-07-05)
PROC: B2111ZZ Fluoroscopy of Multiple Coronary Arteries using Low Osmolar Contrast (ICD-10-PCS; 2018-07-05)
PROC: B2131ZZ Fluoroscopy of Multiple Coronary Artery Bypass Grafts using Low Osmolar Contrast (ICD-10-PCS; 2018-07-05)
DX: A41.9 Sepsis, unspecified organism (principal); J96.01 Acute respiratory failure with hypoxia; I21.4 Non-ST elevation (NSTEMI) myocardial infarction; J96.02 Acute respiratory failure with hypercapnia; R65.21 Severe sepsis with septic shock; J18.1 Lobar pneumonia, unspecified organism; I50.33 Acute on chronic diastolic (congestive) heart failure; E87.1 Hypo-osmolality and hyponatremia; G93.1 Anoxic brain damage, not elsewhere classified; N17.9 Acute kidney failure, unspecified; N39.0 Urinary tract infection, site not specified; I47.1 Supraventricular tachycardia; B96.20 Unspecified Escherichia coli [E. coli] as the cause of diseases classified elsewhere; E11.65 Type 2 diabetes mellitus with hyperglycemia; E66.9 Obesity, unspecified; E78.00 Pure hypercholesterolemia, unspecified; E78.5 Hyperlipidemia, unspecified; E83.42 Hypomagnesemia; G47.33 Obstructive sleep apnea (adult) (pediatric); I11.0 Hypertensive heart disease with heart failure; I25.10 Atherosclerotic heart disease of native coronary artery without angina pectoris; Z96.651 Presence of right artificial knee joint; W65.XXXA Accidental drowning and submersion while in bath-tub, initial encounter; E86.1 Hypovolemia; E87.6 Hypokalemia; K21.9 Gastro-esophageal reflux disease without esophagitis; Z82.49 Family history of ischemic heart disease and other diseases of the circulatory system; Z83.3 Family history of diabetes mellitus; Z85.46 Personal history of malignant neoplasm of prostate; Z87.891 Personal history of nicotine dependence; Z91.19 Patient's noncompliance with other medical treatment and regimen; Z95.1 Presence of aortocoronary bypass graft; Y93.89 Activity, other specified; Y92.89 Other specified places as the place of occurrence of the external cause; Y99.8 Other external cause status; Z80.9 Family history of malignant neoplasm, unspecified; Z68.31 Body mass index [BMI] 31.0-31.9, adult; Z88.8 Allergy status to other drugs, medicaments and biological substances
CPT/HCPCS: 36415; 36600; 70450; 71045; 80047; 80048; 80053; 80061; 81001; 82436; 82550; 82805; 83605; 83735; 83880; 83930; 83935; 84133; 84145; 84300; 84443; 84484; 85007; 85025; 85520; 85610; 87040; 87070; 87086; 87186; 87205; 87641; 93005; 93306; 93459; 93567; 94002; 94003; 94640; 94760; 95816; 99152; 99153; 99291; C1769; C1892; J1265; J1644; J1940; J2250; J2405; J2543; J2704; J3010; J3370; J3475; J7030; J7040; J7620; Q9967; 92610; 97110; 97116; 97530; 97535